=== PATIENT | female | born 2000 | race African-American/Black ===

== ENCOUNTER 2019-06-23 08:41 | Emergency (ER) | payer OTHER, SELFPAY ==
[2019-06-23 08:55] VITALS: BP 106/70; PULSE 61; RESP 16; TEMP 36.1; O2SAT 100
--- NOTE | 2019-06-23 09:10 | ED.GENADULT ---
HPI - General Adult General Chief complaint: Urogenital-Female Stated complaint: UTI Time Seen by Provider: 06/23/19 09:10 Source: patient Mode of arrival: ambulatory Limitations: no limitations History of Present Illness HPI narrative: 18-year-old female patient presents to the [facility] with complaints of urinary symptoms that started about 2 days ago. Patient states that she has had burning pain with urination urgency and frequency. Patient also reports some left flank pain. Denies any low back pain. Patient denies any fevers, nausea, vomiting or diarrhea. Patient states she has had some headaches. Patient denies taking anything for her symptoms. Patient states that her last menstrual period started on June 13. Patient unsure if she is but she is sexually active. Related Data Allergies Allergy/AdvReac Type Severity Reaction Status Date / Time No Known Allergies Allergy Verified 06/23/19 09:17 Review of Systems Review of Systems: Narrative: CONSTITUTIONAL: Denies fever, chills, or sweats. EYES: Denies visual changes, redness, or discharge. ENT: Denies rhinorrhea, congestion, sore throat, or otalgia. CARDIOVASCULAR: Denies chest pain, palpitations, or edema. RESPIRATORY: Denies cough or dyspnea. GASTROINTESTINAL: Denies abdominal pain, nausea, vomiting, or diarrhea. GENITOURINARY: Denies dysuria or hematuria. Positive pain with urination, urgency and frequency and left flank pain. SKIN: Denies rash or itching. MUSCULOSKELETAL: Denies back pain, joint pain, or myalgia. NEUROLOGIC: Denies headache, numbness, or weakness. PSYCHIATRIC: Denies anxiety or depression. PMFSH Social History Social History Gender identity (if verbalized by the patient): Female Comments At the time of my signature I agree with nursing past medical history, surgical, social, and family history. There is no relevant family history pertinent to the presenting complaint. Exam Narrative: Exam Narrative: GENERAL: Well-appearing, well-nourished, and in no acute distress. HEAD: Normocephalic, atraumatic. EYES: PERRLA and EOMI. ENT: Nares clear, no rhinorrhea or epistaxis. Mucous membranes moist. NECK: Supple. No lymphadenopathy CHEST: Clear to auscultation. No respiratory distress. HEART: Regular rate and rhythm. No murmur heard. Normal peripheral pulses. ABDOMEN: Soft, nontender, nondistended, normal active bowel sounds. No CVA tenderness on percussion. EXTREMITIES: Normal range of motion. No edema. SKIN: Warm, dry, no rash. NEURO: No focal deficits. Alert and oriented x3. Course Vital Signs Vital signs: Vital Signs Temperature 36.1 C L 06/23/19 08:55 Pulse Rate 61 06/23/19 08:55 Respiratory Rate 16 06/23/19 08:55 Blood Pressure 106/70 06/23/19 08:55 Pulse Oximetry 100 06/23/19 08:55 Temperature 36.1 C L 06/23/19 08:55 Pulse Rate 61 06/23/19 08:55 Respiratory Rate 16 06/23/19 08:55 Blood Pressure 106/70 06/23/19 08:55 Pulse Oximetry 100 06/23/19 08:55 Vital signs reviewed. Medical Decision Making Differential Diagnosis Differential Diagnosis: Differential diagnosis: Uncomplicated lower UTI, uncomplicated UTI, pyelonephritis Discussed with patient that based on her symptoms as well as her urine dip results it does look like she does have a UTI today. Discussed with patient we are going to go ahead and test her for before I would prescribe her any antibiotics and we will most likely send her home with antibiotics for the UTI symptoms today. Discussed with her we will send the urine off to the lab for a culture and if her antibiotic needs to be changed or discontinued she will get a phone call from someone at this office. Patient verbalized understanding denies any other questions or concerns at this time. Discussed with patient she can take Tylenol, ibuprofen or [id number] AZO for her pain symptoms. Vital Signs Vital Si
== END 2019-06-23 09:21 | disposition home or self-care (01) ==
PROVIDERS: Emergency Provider Nurse Practitioner Family; PCP Pediatrics
DX: N39.0 Urinary tract infection, site not specified (principal)
CPT/HCPCS: 81003; 81025; 87077; 87086; 87088; 87186; 99203; G0463